=== PATIENT | female | born 1975 ===

== ENCOUNTER 2019-09-11 17:01 | Emergency (ER) | payer BC ==
[~2019-09-11] VITALS: Ht 157.5 cm; Wt 69.0 kg
[2019-09-11] MEDS ORDERED: OMNIPAQUE 350 MG/ML, 100ML BOTTLE ONE (18:00)
[2019-09-11] MEDS ORDERED: MORPHINE SULFATE 4 MG/ML, 1ML IVPush PRN (18:00)
[2019-09-11] MEDS ORDERED: ONDANSETRON 2MG/ML, 2ML IVPush ONE ×2 (18:30→20:00)
[2019-09-11 18:40] LABS: BASOPHILS # (AUTO) 0.04 x10^3/uL (0-0.1); BASOPHILS % (AUTO) 0 % (0-1); EOSINOPHILS # (AUTO) 0.08 x10^3/uL (0-0.4); EOSINOPHILS % (AUTO) 1 % (1-7); LYMPHOCYTES % (AUTO) 18 % (22-44); MD NO; MEAN CORPUSCULAR HEMOGLOBIN 29.5 pg (27.0-34.8); MEAN CORPUSCULAR HGB CONC 33.2 g/dL (32.4-35.8); MEAN CORPUSCULAR VOLUME 88.6 fL (80-100); MEAN PLATELET VOLUME 8.7 fL (7.4-10.4); MONOCYTES # (AUTO) 0.51 x10^3/uL (0.2-0.8); MONOCYTES % (AUTO) 5 % (2-9); NEUTROPHILS # (AUTO) 7.84 x10^3/uL (1.8-6.8); NEUTROPHILS % (AUTO) 76 % (42-75); PLATELET COUNT 321 x10^3/uL (130-400); RED CELL DISTRIBUTION WIDTH 13.8 % (9.6-15.2)
[2019-09-11 18:45] LABS: ALBUMIN 4.2 g/dL (3.4-5.0); ANION GAP 7 mmol/L (5-15); CALCIUM 9.1 mg/dL (8.5-10.1); CHLORIDE 110 mmol/L (98-107)
[2019-09-11 18:49] LABS: CREATININE 0.81 mg/dL (0.55-1.02)
[2019-09-11] MEDS ORDERED: MORPHINE SULFATE 4 MG/ML, 1ML ONE (18:50)
[2019-09-11] MEDS ORDERED: ONDANSETRON 2MG/ML, 2ML ONE ×2 (18:50→20:07)
--- NOTE | 2019-09-11 18:54 | NUR ---
ASSESSMENT MADE. CHART UP FOR MD TO SEE.
[2019-09-11] MEDS ORDERED: SODIUM CHLORIDE FLUSH 10ML SYR IVF ONE (19:00)
--- NOTE | 2019-09-11 19:00 | NUR ---
IV PLACED. MEDICATED FOR NAUSEA AND PAIN.
--- NOTE | 2019-09-11 19:14 | NUR ---
PATIENT BACK FROM CT SCAN.
[2019-09-11] MEDS ORDERED: LORazepam 2 MG/ML, 1ML IVPush ONE (20:00)
[2019-09-11] MEDS ORDERED: LORazepam 2 MG/ML, 1ML ONE (20:08)
--- NOTE | 2019-09-11 20:17 | NUR ---
PATIENT MEDICATED FOR ANXIETY AND NAUSEA. CT AND LABS RESULTED. CHART UP FOR MD TO RE-EVAL.
[2019-09-11] MEDS ORDERED: CLINDAMYCIN PMX 600MG/50ML 50 ML ONE (20:28)
[2019-09-11] MEDS ORDERED: CLINDAMYCIN PMX 600MG/50ML 50 ML IV ONE (20:30)
[2019-09-11 21:01] VITALS: BP 123/83
--- NOTE | 2019-09-11 21:13 | NUR ---
patient discharged with prescription and instruction. verbalized understanding.
== END 2019-09-11 21:26 | disposition home or self-care (01) ==
LOC: ED 21:23
DX: K13.0 Diseases of lips (principal)
CPT/HCPCS: 36415; 70487; 80048; 82040; 84703; 85025; 96365; 96375; 96376; 99285; J2060; J2270; J2405; Q9967